=== PATIENT | male | born 1965 | race Two or more races ===

== ENCOUNTER 2022-10-10 22:40 | Inpatient (IN) | payer MEDICAID, OTHER ==
[~2022-10-10] VITALS: Ht 175.3 cm; Wt 63.2 kg
--- NOTE | 2022-10-10 22:58 | NUR ---
PT BROUGHT IN BA RA VIA JOHAN. A/O X 1 CONFUSED. JJIES PAIN. Addendum: 10/10/22 at 2259 by KRISTIE PT RA PERSONAL PT IS ALTERED SINCE MONDAY PER FAMILY.
[2022-10-10 23:27] LABS: BASOPHILS # (AUTO) 0.2 K/uL (0.0-0.2); BASOPHILS % (AUTO) 2.4 % (0.0-2.0); EOSINOPHILS % (AUTO) 8.5 % (0.0-6.0); HEMATOCRIT 36 % (39-51); HEMOGLOBIN 11.9 g/dL (13.5-17.5); LYMPHOCYTES # (AUTO) 1.6 K/uL (0.8-4.8); LYMPHOCYTES % (AUTO) 24.6 % (20.0-44.0); MEAN CORPUSCULAR HGB CONC 33 g/dl (31.0-36.0); MEAN CORPUSCULAR VOLUME 86 fL (80-96); MONOCYTES # (AUTO) 0.4 K/uL (0.1-1.30); MONOCYTES % (AUTO) 5.3 % (2.0-12.0); NEUTROPHILS # (AUTO) 3.9 K/uL (1.8-8.9); NEUTROPHILS % (AUTO) 59.2 % (43.0-81.0); PLATELET COUNT (AUTO) 201 K/uL (150-450); RED BLOOD CELL COUNT(AUTO) 4.19 MIL/uL (4.5-6.0); WHITE BLOOD COUNT (AUTO) 6.6 K/uL (4.3-11.0)
[2022-10-10 23:45] LABS: SERUM AMMONIA 106 umol/L (11-32)
[2022-10-10 23:46] LABS: CALCIUM, SERUM 9.3 mg/dL (8.5-10.1); CARBON DIOXIDE 27 mmol/L (21-32); CHLORIDE 104 mmol/L (98-107); CREATININE 2.4 mg/dL (0.6-1.3); GLUCOSE 162 mg/dL (74-106); POTASSIUM 3.6 mmol/L (3.5-5.1); SODIUM SERUM 140 mmol/L (136-145); UREA NITROGEN, BLOOD 22 mg/dL (7-18)
[2022-10-10 23:49] LABS: ALANINE AMINOTRANSFERASE 16 U/L (12-78); ALBUMIN 2.9 g/dL (3.4-5.0); ALCOHOL, BLOOD < 3 mg/dL (0-0); ALKALINE PHOSPHATASE 174 U/L (46-116); ASPARTATE AMINOTRANSFERASE 25 U/L (15-37); BILIRUBIN,DIRECT 0.3 mg/dL (0.0-0.2); BILIRUBIN,TOTAL 0.6 mg/dL (0.2-1.0); TOTAL PROTEIN, SERUM 8.4 g/dL (6.4-8.2)
--- NOTE | 2022-10-10 23:50 | NUR ---
TROPONIN 108
[2022-10-10 23:52] LABS: ACETAMINOPHEN < 10 ug/ml (10-30)
[2022-10-11] VITALS (7 sets, daily range): BP systolic 142–167; BP diastolic 85–100
[2022-10-11] MEDS ORDERED: LACTULOSE 10 G/15 ML UDC (PYXIS) PR ONE (01:00)
--- NOTE | 2022-10-11 01:00 | NUR ---
NOTED PT PULLED THE IV LINE NO BLEEDING NOTED.
--- NOTE | 2022-10-11 01:15 | NUR ---
[facility] DR. BUI ON PHONE WITH DR. ANTOINE FOR PEER TO PEER
--- NOTE | 2022-10-11 01:24 | NUR ---
INSERTED NEW IV LINE #20 IN RFA WITH GOOD BACK FLOW OF BLOOD.
--- NOTE | 2022-10-11 01:25 | NUR ---
SPOKE WITH SUIZ AT [facility], PT IS CONFIRMED UNSTABLE BY DR. THACKER. THEY WILL FAX OVER PAPERWORK.
[2022-10-11] MEDS ORDERED: ZOLPIDEM TARTRATE 5 MG TABLET PO PRN (01:30)
[2022-10-11] MEDS ORDERED: ACETAMINOPHEN 325 MG TABLET PO PRN (01:30)
[2022-10-11] MEDS ORDERED: ONDANSETRON HCL/PF 4 MG/2 ML VIAL IVP PRN (01:30)
[2022-10-11] MEDS ORDERED: MAG HYDROX/AL HYDROX/SIMETH 30 ML UDC PO PRN (01:30)
[2022-10-11] MEDS ORDERED: MAGNESIUM HYDROXIDE 30 ML UDC PO PRN (01:30)
[2022-10-11] MEDS ORDERED: Z GUARD REMEDY 4 OZ OINT TP PRN (01:30)
[2022-10-11 01:52] LABS: BILIRUBIN,URINE NEGATIVE (NEGATIVE); COLOR,URINE YELLOW (YELLOW); LEUKOCYTE ESTERASE ,URINE 2+ (NEGATIVE); NITRITE, URINE NEGATIVE (NEGATIVE); PH,URINE 6.5 (5.0-8.0); PROTEIN,URINE 2+ mg/dl (NEGATIVE); UGLUCOSE NEGATIVE (NEGATIVE); UROBILINOGEN,URINE 0.2 EU/dL (0.2)
[2022-10-11] MEDS ORDERED: LACTULOSE 10 G/15 ML UDC (PYXIS) ONE (01:59)
[2022-10-11] MEDS ORDERED: ASPIRIN 325 MG TABLET PO ONE (02:00)
--- NOTE | 2022-10-11 02:00 | NUR ---
LACTULOSE 20 GM GIVEN VIA RECTALLY.
[2022-10-11] MEDS ORDERED: FERR325T23 PO (02:28)
[2022-10-11] MEDS ORDERED: FURO-145 PO (02:28)
[2022-10-11] MEDS ORDERED: OMEP20CA15 PO (02:28)
[2022-10-11] MEDS ORDERED: LISI20TA30 PO (02:28)
[2022-10-11] MEDS ORDERED: FEBU40TA PO (02:28)
[2022-10-11] MEDS ORDERED: ERGO500093 PO (02:28)
--- NOTE | 2022-10-11 02:30 | NUR ---
TRANSFERRED TO THIRD FLOOR UNDER ACLS
--- NOTE | 2022-10-11 02:30 | NUR ---
RN NOTES RECEIVED PATIENT FROM ER AT 0230. PATIENT IS A/O TIMES 1-2 WITH EPISODES OF CONFUSION. REORIENT THE PATIENT. PATIENT WAS ABLE TO AMBULATE FROM GURNEY TO BED. ALL NEEDS ATTENDED. PATIENT ANXIOUS AND WANTS TO GO HOME. IV SITE NOTED ON THE RFA G # 20 INTACT, RUNNING NS AT 90 ML/HR. ALL THE BELONGINGS ACCOUNTED AND SIGNED FOR. SMALL OPEN SKIN ON THE LEFT BUTTOCK. LEFT BIG TOE AND SECOND TOE WOUND AND LEFT LEG SCRATCHES NOTED. PHOTO TAKE IN THE CHART. WOUND ARE CONSULT ORDERED. DIETARY CONSULT NOTED. ALL SAFETY MEASURES IN PLACE. BED LOCKED IN THE LOWEST POSITION. CALL LIGHT AND TABLE IN EASY REACH. BED ALARM ON. WILL CONTINUE TO MONITOR CLOSELY.
[2022-10-11 03:20] LABS: BACTERIA,URINE Many /HPF (None Seen); WBC,URINE 21-50 /HPF (0-3)
[2022-10-11 03:21] LABS: SQUAMOUS EPITHELIAL CELL,UR Rare /HPF (None Seen)
--- NOTE | 2022-10-11 03:57 | NUR ---
RN NOTE PT AGITATED AND WALKING AROUND UNIT WANTING TO LEAVE, NOT ALERT OR ORIENTED. HR 160 WITH ELEVATED TROPONIN. INFORMED WARP TESTER KE WITH ORDER FOR ATIVAN 1 MG IV ONCE. ORDER NOTED AND CARRIED OUT. CHARGE NURSE LAUREANO LEUNG.
[2022-10-11] MEDS ORDERED: LORAZEPAM INJ 2 MG/ML VIAL IV ONE (04:00)
[2022-10-11] MEDS: IV NS 0.9% 1,000 ML IV PRN ×2 (05:16→17:57)
--- NOTE | 2022-10-11 06:54 | NUR ---
ASSISTANT MERCHANDISER CLOSING NOTES PATIENT IS A/O TIMES 1-2 WITH EPISODES OF CONFUSION. REORIENT THE PATIENT. PATIENT RESTING CURRENTLY. ALL NEEDS ATTENDED. PATIENT ANXIOUS AND WANTS TO GO HOME. IV SITE NOTED ON THE RFA G # 20 INTACT, RUNNING NS AT 90 ML/HR. THE MOTHER CALLED AT 0620 THIS MORNING AND SHE STATED PATIENT WAS RESTLESS AND WANTED TO LEAVE HOME THAT WAS WHY SHE CALLED PARAMEDICS. HE WAS NOT COOPERATIVE IN ER AND WANTED TO GO HOME. AROUND 4 AM FOR EXCESS AGITATION AND ANXIETY ONE TIME ORDER OF ATIVAN GIVEN PER DR BILLY ST. ALSO NOT EFFECTIVE, BILATERAL SOFT RESTRAINS ORDERED AT 0415. ALL SAFETY MEASURES IN PLACE. BED LOCKED IN THE LOWEST POSITION. CALL LIGHT AND TABLE IN EASY REACH. BED ALARM ON. TROPONIN LEVEL OF [address] AT 0330 AM NO NEW ORDER WAS GIVEN. WILL ENDORSE FOR ALEXANDER.
[2022-10-11] MEDS: ASPIRIN 81 MG TAB.CHEW PO SCH (08:18)
[2022-10-11] MEDS: PANTOPRAZOLE 40 MG VIAL IV SCH (08:18)
[2022-10-11] MEDS: LACTULOSE 10 G/15 ML UDC (PYXIS) PO SCH ×3 (08:19→16:28)
[2022-10-11 10:24] LABS: THYROID STIMULATING HORMONE 4.764 uIU/mL (0.358-3.74)
[2022-10-11] MEDS: CEFTRIAXONE 1 G in IV D5W 50 ML IV SCH (11:25)
[2022-10-11] MEDS: NITROGLYCERIN 30 GM TUBE TP SCH ×2 (11:26→22:30)
[2022-10-11] MEDS: hydrALAZINE HCL 50 MG TABLET PO SCH ×3 (11:27→16:28)
--- NOTE | 2022-10-11 18:11 | NUR ---
END OF SHIFT SUMMARY PATIENT IS A/OX 1. SATURATING WELL ON RA. SR/ST ON TELE. ABLE TO REPOSITION HIMSELF INDEPENDENTLY. HUSSAIN SOFT WRIST RESTRAINT ASSESSED PER PROTOCOL. IV ACCESS ON R FA #20 G, NS RUNNING AT 90 ML/HR. INCONTINENCE CARE PROVIDED. BM X3 D/T LACTULOSE. SAFETY MEASURES MAINTAINED. BED IN LOWEST POSITION, BRAKES LOCKED. SIDE RAILS UP X2. CALL LIGHT WITHIN REACH. WILL ENDORSE CONTINUITY OF CARE TO ONCOMING SHIFT.
--- NOTE | 2022-10-11 19:35 | NUR ---
ASSISTANT ASSOCIATE FULL PROFESSOR OPENING NOTES RECEIVED PATIENT IN BED SLEEPING. A/O X 1-2. IV ACCESS ON RFA #20G NS RUNNING @ 90 ML/HR. ON ROOM AIR, BREATHING EVEN AND UNLABORED, NO S/S OF DISTRESS OR SOB NOTED. ON OUTREACH LIAISON WITH CURRENT READING OF SR/ST. PATIENT ON HUSSAIN SOFT WRIST RESTRAINT. SAFETY MEASURES IN PLACE WITH BED IN LOWEST LOCKED POSITION. SIDE RAILS UP X 2. CALL LIGHT WITHIN REACH. WILL CONTINUE WITH THE PLAN OF CARE.
[2022-10-11 20:04] LABS: CREATININE, URINE 78.2 MG/DL (30.0-125.0)
[2022-10-12 01:02] VITALS: BP 160/93
--- NOTE | 2022-10-12 03:30 | NUR ---
RN NOTES- CRITICAL TROPONIN LEVEL REPORTED RECEIVED CRITICAL TROPONIN LEVEL OF 184 FROM [facility] (LAB). DR. THAKUR INFORMED. WILL CONTINUE TO MONITOR THE PATIENT.
[2022-10-12 04:26] VITALS: BP 134/95
[2022-10-12] MEDS: IV NS 0.9% 1,000 ML IV PRN ×2 (05:22→18:26)
[2022-10-12 06:49] LABS: BASOPHILS # (AUTO) 0.1 K/uL (0.0-0.2); BASOPHILS % (AUTO) 1.2 % (0.0-2.0); EOSINOPHILS % (AUTO) 3.3 % (0.0-6.0); HEMATOCRIT 32 % (39-51); HEMOGLOBIN 10.9 g/dL (13.5-17.5); LYMPHOCYTES # (AUTO) 1.4 K/uL (0.8-4.8); LYMPHOCYTES % (AUTO) 22.5 % (20.0-44.0); MEAN CORPUSCULAR HGB CONC 34 g/dl (31.0-36.0); MEAN CORPUSCULAR VOLUME 87 fL (80-96); MONOCYTES # (AUTO) 0.5 K/uL (0.1-1.30); MONOCYTES % (AUTO) 7.5 % (2.0-12.0); NEUTROPHILS % (AUTO) 65.5 % (43.0-81.0); PLATELET COUNT (AUTO) 166 K/uL (150-450); RED BLOOD CELL COUNT(AUTO) 3.72 MIL/uL (4.5-6.0); WHITE BLOOD COUNT (AUTO) 6.1 K/uL (4.3-11.0)
[2022-10-12 07:15] LABS: ALBUMIN 2.3 g/dL (3.4-5.0); BILIRUBIN,TOTAL 0.8 mg/dL (0.2-1.0); CALCIUM, SERUM 9.1 mg/dL (8.5-10.1); CREATININE 2.1 mg/dL (0.6-1.3); MAGNESIUM 1.8 mg/dL (1.8-2.4); PHOSPHORUS 3.1 mg/dL (2.5-4.9); POTASSIUM 3.7 mmol/L (3.5-5.1); TOTAL PROTEIN, SERUM 6.8 g/dL (6.4-8.2)
--- NOTE | 2022-10-12 07:31 | NUR ---
BILINGUAL RECRUITER CLOSING NOTES PATIENT IN BED SLEEPING. A/O X 1-2. IV ACCESS ON RFA #20G NS RUNNING @ 90 ML/HR. ON ROOM AIR, BREATHING EVEN AND UNLABORED, NO S/S OF DISTRESS OR SOB NOTED. ON CRULLER MAKER WITH CURRENT READING OF SR @ 68 WITH PVC'S AND PAC'S. PATIENT ON HUSSAIN SOFT WRIST RESTRAINT. ALL NEEDS ATTENDED. SAFETY MEASURES IN PLACE WITH BED IN LOWEST LOCKED POSITION. SIDE RAILS UP X 2. CALL LIGHT WITHIN REACH. WILL ENDORSE TO THE NEXT SHIFT.
--- NOTE | 2022-10-12 07:48 | NUR ---
CORRECTION WORKER OPENING NOTES RECEIVED PATIENT SLEEPING IN BED. A/O X 1-2. IV ACCESS ON RFA #20G NS RUNNING @ 90 ML/HR. ON ROOM AIR, BREATHING EVEN AND UNLABORED, NO S/S OF DISTRESS OR SOB NOTED. ON SUPPLY CHAIN DESIGN MANAGER WITH CURRENT READING OF SR 67. PATIENT ON BILATERAL SOFT WRIST RESTRAINT. SAFETY MEASURES IN PLACE WITH BED IN LOWEST LOCKED POSITION. SIDE RAILS UP X 3. CALL LIGHT WITHIN REACH. WILL CONTINUE TO MONITOR PATIENT.
[2022-10-12 08:32] VITALS: BP 153/95
[2022-10-12] MEDS: LACTULOSE 10 G/15 ML UDC (PYXIS) PO SCH ×3 (08:33→16:12)
[2022-10-12] MEDS: hydrALAZINE HCL 50 MG TABLET PO SCH ×3 (08:34→16:14)
[2022-10-12] MEDS: PANTOPRAZOLE 40 MG VIAL IV SCH (08:35)
[2022-10-12] MEDS: ASPIRIN 81 MG TAB.CHEW PO SCH (08:35)
[2022-10-12] MEDS: NITROGLYCERIN 30 GM TUBE TP SCH ×2 (10:02→20:57)
[2022-10-12] MEDS: CEFTRIAXONE 1 G in IV D5W 50 ML IV SCH (10:16)
[2022-10-12] MEDS: METOPROLOL TARTRATE 50 MG TABLET PO SCH ×2 (12:05→17:59)
[2022-10-12 12:27] VITALS: BP 126/77
[2022-10-12 16:17] VITALS: BP 149/77
--- NOTE | 2022-10-12 18:47 | NUR ---
FIXTURE REPAIRER FABRICATOR CLOSING NOTES PATIENT IN BED SLEEPING. A/O X 1-2. IV ACCESS ON RFA #20G NS RUNNING @ 100 ML/HR.INTACT, PATENT, AND IFSUING WELL. ON ROOM AIR, BREATHING EVEN AND UNLABORED, NO S/S OF DISTRESS OR SOB NOTED. ON COMMERCIAL LOAN COORDINATOR WITH CURRENT READING OF SR 81. PATIENT ON BILATERAL SOFT WRIST RESTRAINT RELEASED FOR NOW, NO SIGNS OF AGITATION. ALL NEEDS ATTENDED. SAFETY MEASURES IN PLACE WITH BED IN LOWEST LOCKED POSITION. SIDE RAILS UP X 2. CALL LIGHT WITHIN REACH. WILL ENDORSE TO THE MOLDED CANDLES [employer] [place]SE FOR ALEXANDER.
--- NOTE | 2022-10-12 19:39 | NUR ---
patient opened eyes when name spoken good eye contact wrist retraints off at this time patient calm sleeping off and on bed alarm on near nursing station will monitor patients behavior
[2022-10-12 20:00] VITALS: BP 131/69
[2022-10-13] VITALS (7 sets, daily range): BP systolic 106–141; BP diastolic 64–81
[2022-10-13] MEDS: METOPROLOL TARTRATE 50 MG TABLET PO SCH ×4 (00:06→17:17)
[2022-10-13] MEDS: IV NS 0.9% 1,000 ML IV PRN ×3 (03:04→17:17)
--- NOTE | 2022-10-13 04:52 | NUR ---
closing notes: alert and orientated x2 - 3 incontinent UA strong ordor he is ooperative and pleasent say "thankyou:" after being assisted with drinking or bathing or made comfortable wrist retraints stopped not needed making no attemp to pull at his IV right F/A SR on the cardiac rehabilitation specialist no SOB near the nursing station and the bed alarm is on
[2022-10-13 06:09] LABS: BASOPHILS # (AUTO) 0.1 K/uL (0.0-0.2); BASOPHILS % (AUTO) 1.2 % (0.0-2.0); EOSINOPHILS % (AUTO) 4.8 % (0.0-6.0); HEMATOCRIT 32 % (39-51); HEMOGLOBIN 10.4 g/dL (13.5-17.5); LYMPHOCYTES # (AUTO) 2.1 K/uL (0.8-4.8); LYMPHOCYTES % (AUTO) 29.2 % (20.0-44.0); MEAN CORPUSCULAR HGB CONC 33 g/dl (31.0-36.0); MEAN CORPUSCULAR VOLUME 88 fL (80-96); MONOCYTES # (AUTO) 0.6 K/uL (0.1-1.30); MONOCYTES % (AUTO) 8.6 % (2.0-12.0); NEUTROPHILS % (AUTO) 56.2 % (43.0-81.0); PLATELET COUNT (AUTO) 173 K/uL (150-450)
--- NOTE | 2022-10-13 07:09 | NUR ---
FORGE OPERATOR HELPER OPENING NOTES RECEIVED PATIENT SLEEPING IN BED, A/Ox1-2, ABLE TO MAKE NEEDS KNOWN. ON ROOM AIR, NO S/S OF RESPIRATORY DISTRESS. ON TELE MONITORING SHOWING SB HR 58, NO S/S OF CARDIAC DISTRESS OR DISCOMFORT. IV ACCES R FA #22G RUNNING NS @100 ML/HR. INTACT AND PATENT. AMBULATORY WITH ASSIST, INCONTINENT. SKIN ISSUES: L BUTTOCKS ABRASION, LT BIG TOE WOUND. SAFETY MEASURES IN PLACE: BED LOCKED AND IN LOWEST POSITION, HOB ELEVATED, CALL LIGHT WITHIN REACH, SIDE RAILS UPx3. WILL CONTINUE TO MONITOR.
[2022-10-13 07:19] LABS: CALCIUM, SERUM 8.6 mg/dL (8.5-10.1); MAGNESIUM 1.7 mg/dL (1.8-2.4); PHOSPHORUS 2.9 mg/dL (2.5-4.9); POTASSIUM 3.1 mmol/L (3.5-5.1)
[2022-10-13] MEDS: hydrALAZINE HCL 50 MG TABLET PO SCH ×3 (08:08→17:16)
[2022-10-13] MEDS: ASPIRIN 81 MG TAB.CHEW PO SCH (08:08)
[2022-10-13] MEDS: PANTOPRAZOLE 40 MG TABLET.DR PO SCH (08:08)
[2022-10-13] MEDS: NITROGLYCERIN 30 GM TUBE TP SCH ×2 (08:09→21:27)
[2022-10-13] MEDS: LACTULOSE 10 G/15 ML UDC (PYXIS) PO SCH ×3 (08:12→17:16)
[2022-10-13] MEDS: CEFTRIAXONE 1 G in IV D5W 50 ML IV SCH (09:14)
[2022-10-13] MEDS ORDERED: POTASSIUM CHLORIDE 10 MEQ TABLET.SA PO ONE (10:00)
[2022-10-13 10:12] LABS: IRON, SERUM 64 ug/dl (50-175); TOTAL IRON BINDING CAPACITY 139 ug/dl (250-450)
[2022-10-13] MEDS ORDERED: Magnesium 1GM/D5W 100ML PREMIX 100 ML IV SCH (11:00)
--- NOTE | 2022-10-13 12:49 | NUR ---
RN NOTES PATIENT REFUSED ALL AFTERNOON MEDICATION, RISKS AND BENEFITS EXPLAINED. WILL CONTINUE TO MONITOR PATIENT.
[2022-10-13 16:33] LABS: FERRITIN 213 ng/mL (8-388)
--- NOTE | 2022-10-13 18:57 | NUR ---
INSPECTOR SHEET METAL PARTS CLOSING NOTES PATIENT AWAKE IN BED, A/Ox2, ABLE TO MAKE NEEDS KNOWN. STABLE ON ROOM AIR, NO S/S OF RESPIRATORY DISTRESS. ON TELE MONITORING SHOWING SB HR 58, NO S/S OF CARDIAC DISTRESS OR DISCOMFORT. IV ACCES R FA #22G RUNNING NS @100 ML/HR. INTACT AND PATENT. AMBULATORY WITH ASSIST, INCONTINENT. SKIN ISSUES: L BUTTOCKS ABRASION LT BIG TOE WOUND. SAFETY MEASURES MAINTAINED: BED LOCKED AND IN LOWEST POSITION, HOB ELEVATED, CALL LIGHT WITHIN REACH, SIDE RAILS x3. WILL ENDORSE TO NEXT SHIFT ANY ALEXANDER.
--- NOTE | 2022-10-13 20:20 | NUR ---
ASSOCIATE BUSINESS ANALYST OPENING NOTES; RECEIVED PATIENT SLEEP IN BED COMFORTABLY, AROUSABLE TO VERBAL STIMULI, BED IN LOW POSITION, CALL LIGHTS WITHIN REACH, NO COMPLAIN OF PAIN AND DISCOMFORT AT THIS TIME, ON ROOM IAR SATURATING WELL, PATIENT IS A/O X2-3 ABLE TO MAKE NEEDS KNOWN, AMBULATORY WITH ASSIST, IV LINE AT RFA#22 WITH ONGOING 0.9NSS@100ML/HR INFUSING WELL, PATIENT KEPT CLEAN AND DRY ALL NEEDS MET WILL CONTINUE TO MONITOR.
[2022-10-14] VITALS (7 sets, daily range): BP systolic 113–141; BP diastolic 72–82
[2022-10-14] MEDS: METOPROLOL TARTRATE 50 MG TABLET PO SCH ×5 (00:25→23:34)
[2022-10-14] MEDS: IV NS 0.9% 1,000 ML IV PRN (03:25)
--- NOTE | 2022-10-14 06:25 | NUR ---
FINANCIAL COST ANALYST CLOSING NOTES: PATIENT AWAKE IN BED, BED IN LOW POSITION CALL LIGHTS WITHIN REACH, NO COMPLAIN OF PAIN AND DISCOMFORT AT THIS TIME, ON ROOM AIR SATURATING WELL, PATIENT IS A/O X3-4 ABLE TO MAKE NEEDS KNOWN, IV LINE AT RFA#22 WITH ONGOING 0.9NSS@100ML/HR INFUSING WELL, ON TELE MONITOR- SR-61,KEPT CLEAN AND DRY ALL NEEDS MET ENDORSE TO INCOMING SHIFT.
--- NOTE | 2022-10-14 07:15 | NUR ---
TELE MOLDED RUBBER GOODS CUTTER OPENING NOTES RECEIVED PATIENT AWAKE, A/Ox2-3, ABLE TO MAKE NEEDS KNOWN. ON ROOM AIR, NO S/S OF RESPIRATORY DISTRESS. ON TELE MONITORING SHOWING SB HR 64, NO S/S OF CARDIAC DISTRESS OR DISCOMFORT. IV ACCES R FA #22G RUNNING NS @100 ML/HR. INTACT AND PATENT. AMBULATORY WITH ASSIST, CONTINENT. SKIN ISSUES: L BUTTOCKS ABRASION, LT BIG TOE WOUND. SAFETY MEASURES IN PLACE: BED LOCKED AND IN LOWEST POSITION, HOB ELEVATED, CALL LIGHT WITHIN REACH, SIDE RAILS UPx3. WILL CONTINUE TO MONITOR.
[2022-10-14] MEDS: PANTOPRAZOLE 40 MG TABLET.DR PO SCH (08:26)
[2022-10-14] MEDS: ASPIRIN 81 MG TAB.CHEW PO SCH (08:26)
[2022-10-14] MEDS: hydrALAZINE HCL 50 MG TABLET PO SCH ×3 (08:28→17:00)
[2022-10-14] MEDS: NITROGLYCERIN 30 GM TUBE TP SCH ×2 (08:29→20:45)
[2022-10-14] MEDS: LACTULOSE 10 G/15 ML UDC (PYXIS) PO SCH ×3 (08:30→17:00)
[2022-10-14] MEDS: CEFTRIAXONE 1 G in IV D5W 50 ML IV SCH (09:13)
--- NOTE | 2022-10-14 12:15 | NUR ---
PRODUCT SAFETY HEAD REFUSED MEDICATION NOTE PATIENT REFUSED MEDICATION, DOESN'T WANT TO HAVE LOOSE STOOL. EXPLAINED BENEFITS. PATIENT STILL REFUSED.
--- NOTE | 2022-10-14 17:50 | NUR ---
RN NOTES PATIENT REFUSED HYDRALAZINE AND LACTULOSE, RISKS AND BENEFITS EXPLAINED. PATIENT ACCEPTED LOPRESSOR, BUT OTHER MEDICATION WAS REFUSED.
--- NOTE | 2022-10-14 18:39 | NUR ---
TELE CLIENT DEVELOPMENT CONSULTANT CLOSING NOTES PATIENT IS AWAKE, IN BED RESTING/ WATCHING TV, A/Ox3, ABLE TO MAKE NEEDS KNOWN. ON ROOM AIR, NO S/S OF RESPIRATORY DISTRESS. ON TELE MONITORING SHOWING SB HR 62. NO COMPLAINT OF PAIN AT THIS TIME. MEDICATION WAS ADMINISTERED SCHEDULED. IV ACCES R FA #22G FLUSHING WELL, INTACT AND PATENT. AMBULATORY WITH ASSIST, CONTINENT. SAFETY MEASURES IN PLACE: BED LOCKED AND IN LOWEST POSITION, HOB ELEVATED, CALL LIGHT WITHIN REACH, SIDE RAILS UPx2
--- NOTE | 2022-10-14 19:30 | NUR ---
SASH MAKER OPENING NOTES PATIENT IS AWAKE, IN BED RESTING/ WATCHING TV, A/Ox3, ABLE TO MAKE NEEDS KNOWN. ON ROOM AIR, NO S/S OF RESPIRATORY DISTRESS. ON TELE MONITORING SHOWING SB HR 62. NO COMPLAINT OF PAIN AT THIS TIME. IV ACCES R FA #22G FLUSHING WELL, INTACT AND PATENT. AMBULATORY WITH ASSIST, CONTINENT. SAFETY MEASURES IN PLACE: BED LOCKED AND IN LOWEST POSITION, HOB ELEVATED, CALL LIGHT WITHIN REACH, SIDE RAILS UPx2.
[2022-10-15] VITALS: BP 120/72
[2022-10-15 04:00] VITALS: BP 130/75
[2022-10-15 05:51] LABS: BASOPHILS # (AUTO) 0.1 K/uL (0.0-0.2); BASOPHILS % (AUTO) 1.4 % (0.0-2.0); EOSINOPHILS % (AUTO) 9.1 % (0.0-6.0); HEMATOCRIT 30 % (39-51); HEMOGLOBIN 10.2 g/dL (13.5-17.5); LYMPHOCYTES # (AUTO) 1.6 K/uL (0.8-4.8); LYMPHOCYTES % (AUTO) 24.7 % (20.0-44.0); MEAN CORPUSCULAR HGB CONC 34 g/dl (31.0-36.0); MEAN CORPUSCULAR VOLUME 86 fL (80-96); MONOCYTES # (AUTO) 0.5 K/uL (0.1-1.30); NEUTROPHILS # (AUTO) 3.7 K/uL (1.8-8.9); NEUTROPHILS % (AUTO) 56.8 % (43.0-81.0); PLATELET COUNT (AUTO) 157 K/uL (150-450); RED BLOOD CELL COUNT(AUTO) 3.53 MIL/uL (4.5-6.0); WHITE BLOOD COUNT (AUTO) 6.5 K/uL (4.3-11.0)
[2022-10-15] MEDS: METOPROLOL TARTRATE 50 MG TABLET PO SCH ×2 (06:02→12:16)
[2022-10-15 06:08] LABS: CALCIUM, SERUM 8.5 mg/dL (8.5-10.1); CREATININE 2.2 mg/dL (0.6-1.3); MAGNESIUM 1.8 mg/dL (1.8-2.4); PHOSPHORUS 3.4 mg/dL (2.5-4.9); POTASSIUM 3.5 mmol/L (3.5-5.1)
--- NOTE | 2022-10-15 06:35 | NUR ---
SCRAP DROP CRANE OPERATOR CLOSING NOTES PATIENT IS AWAKE, IN BED RESTING/ WATCHING TV, A/Ox3, ABLE TO MAKE NEEDS KNOWN. ON ROOM AIR, NO S/S OF RESPIRATORY DISTRESS. ON TELE MONITORING SHOWING SB HR 62. NO COMPLAINT OF PAIN AT THIS TIME. IV ACCES RFA #22G FLUSHING WELL, INTACT AND PATENT. AMBULATORY WITH ASSIST, CONTINENT. SAFETY MEASURES IN PLACE: BED LOCKED AND IN LOWEST POSITION, HOB ELEVATED, CALL LIGHT WITHIN REACH, SIDE RAILS UPx2. WILL ENDORSE MERARY TO DAY SHIFT NURSE.
[2022-10-15 08:00] VITALS: BP 140/84
--- NOTE | 2022-10-15 08:05 | NUR ---
PURCHASING DIRECTOR OPENING NOTES PATIENT IS AWAKE IN BED A/Ox4, ABLE TO MAKE NEEDS KNOWN. ON ROOM AIR, NO S/S OF RESPIRATORY DISTRESS. ON TELE MONITORING SHOWING SB/SR HR 59-62. NO COMPLAINT OF PAIN AT THIS TIME. PATIENT STATES HE WANTED TO GO HOME TODAY, WILL FOLLOW UP ON THIS. IV ACCES RFA #22G FLUSHING WELL, INTACT AND PATENT. AMBULATORY WITH ASSIST, CONTINENT. SAFETY MEASURES IN PLACE: BED LOCKED AND IN LOWEST POSITION, HOB ELEVATED, CALL LIGHT WITHIN REACH, SIDE RAILS UPx2. WILL CONTINUE TO MONITOR.
[2022-10-15] MEDS: PANTOPRAZOLE 40 MG TABLET.DR PO SCH (08:30)
[2022-10-15] MEDS: LACTULOSE 10 G/15 ML UDC (PYXIS) PO SCH ×2 (09:02→12:17)
[2022-10-15] MEDS: ASPIRIN 81 MG TAB.CHEW PO SCH (09:02)
[2022-10-15] MEDS: hydrALAZINE HCL 50 MG TABLET PO SCH ×2 (09:04→12:17)
[2022-10-15] MEDS: NITROGLYCERIN 30 GM TUBE TP SCH (09:04)
[2022-10-15] MEDS: CEFTRIAXONE 1 G in IV D5W 50 ML IV SCH (09:12)
[2022-10-15 12:00] VITALS: BP 149/95
[2022-10-15 12:17] VITALS: BP 149/95
[2022-10-15] MEDS ORDERED: SULF1TAB47 PO (14:01)
[2022-10-15] MEDS ORDERED: LACT10SO58 PO (14:01)
[2022-10-15] MEDS ORDERED: HYDR-4077 PO (14:01)
[2022-10-15] MEDS ORDERED: ASPI-1169 PO (14:01)
[2022-10-15] MEDS ORDERED: METO50TA16 PO (14:01)
[2022-10-15] MEDS ORDERED: RIFA550T PO (14:01)
--- NOTE | 2022-10-15 15:43 | NUR ---
DISCHARGED NOTE PATIENT DISCHARGED TO HOME IN STABLE CONDITION, A/OX4. ON RA, TOLERATING WELL WITH SPO2 OF 98%. NO CARDIAC OR RESPIRATORY DISTRESS NOTED. VITALS TAKEN, STABLE AND RECORDED. PATIENT REFUSED TO TAKE PICTURES OF SKIN. DENIES PAIN OR DISCOMFORT AT THIS TIME. ALL BELONGINGS ACCOUNTED TO THE PATIENT. DISCHARGED INSTRUCTIONS RELAYED TO THE PATIENT. IV ACCESS REMOVED WITH NO ACTIVE BLEEDING NOTED. PATIENT'S MOTHER AWARE OF THE DC. INSTRUCTED PATIENT TO HAVE A NEPHRO AND GI CONSULT AFTER A WEEK. DISCHARGED.
== END 2022-10-15 16:15 | disposition home or self-care (01) ==
LOC: ER 22:44 → TELE 10-11 01:36
PROVIDERS: ADMIT Student in an Organized Health Care Education/Training Program; ATTEND Student in an Organized Health Care Education/Training Program
DX: K76.82 Hepatic encephalopathy (principal); N17.0 Acute kidney failure with tubular necrosis; K76.7 Hepatorenal syndrome; I21.A1 Myocardial infarction type 2; D63.8 Anemia in other chronic diseases classified elsewhere; E88.09 Other disorders of plasma-protein metabolism, not elsewhere classified; R18.8 Other ascites; Z20.822 Contact with and (suspected) exposure to COVID-19; K74.60 Unspecified cirrhosis of liver; N39.0 Urinary tract infection, site not specified; I12.9 Hypertensive chronic kidney disease with stage 1 through stage 4 chronic kidney disease, or unspecified chronic kidney disease; N18.9 Chronic kidney disease, unspecified; E11.22 Type 2 diabetes mellitus with diabetic chronic kidney disease; Z87.891 Personal history of nicotine dependence
CPT/HCPCS: 36415; 70450-TC; 71045-TC; 76700-TC; 80048-TC; 80053-TC; 80061-TC; 80076-TC; 81001; 82140-TC; 82570-TC; 82728-TC; 82962-TC; 83540-TC; 83605-TC; 83690-TC; 83735-TC; 84100-TC; 84300-TC; 84439-TC; 84443-TC; 84484-TC; 85025-TC; 85730-TC; 87040-TC; 87081-TC; 87086-TC; 93307-TC; 97110-TC; 97112-TC; 97116-TC; A4223; C9113; C9803; G0378; G0480; J0696; J2060; J3475; J7030; J7060